=== PATIENT | male | born 1975 | race African-American/Black ===

== ENCOUNTER 2019-12-21 17:50 | Emergency (ER) | payer OTHER ==
[~2019-12-21] VITALS: Ht 182.9 cm; Wt 142.9 kg
[2019-12-21] MEDS ORDERED: SHORT ACTING INSULIN (18:02)
[2019-12-21] MEDS ORDERED: LONG ACTING INSULIN (18:02)
[2019-12-21] MEDS ORDERED: JANUVIA25 MG PO (18:02)
[2019-12-21] MEDS ORDERED: LIPITOR 20 MG T20 M1 PO (18:02)
[2019-12-21] MEDS ORDERED: ZESTRIL5 MG PO (18:02)
[2019-12-21 18:41] LABS: INFLUENZA A ANTIGEN Negative (Negative); INFLUENZA B ANTIGEN Negative (Negative)
[2019-12-21] MEDS ORDERED: APAP W/CODEINE1 TA2 PO (19:03)
[2019-12-21] MEDS ORDERED: ZPAK PO (19:03)
[2019-12-21 19:12] VITALS: BP 142/70
== END 2019-12-21 19:12 | disposition home or self-care (01) ==
LOC: M.ERS 17:50
PROVIDERS: Family Medicine
DX: J06.9 Acute upper respiratory infection, unspecified (principal); R59.1 Generalized enlarged lymph nodes; Z20.828 Contact with and (suspected) exposure to other viral communicable diseases; I10 Essential (primary) hypertension; E11.9 Type 2 diabetes mellitus without complications